=== PATIENT | female | born 1975 ===

== ENCOUNTER 2024-10-20 10:00 | Inpatient (IN) | payer OTHER ==
[~2024-10-20] VITALS: Ht 30.5 cm; Wt 63.5 kg
[2024-10-20] MEDS ORDERED: MIRALAX17 GM PO (10:50)
[2024-10-20 11:07] LABS: BASO % 0.3 % (0.1-1.2); EOS # 0.02 (0.04-0.54); EOS % 0.3 % (0.7-7.0); LYMPH # 1.99 (1.18-3.74); LYMPH % 33.5 % (19.3-53.1); MEAN PLATELET VOLUME 9.80 fl (9.4-12.4); MONO # 0.56 (0.24-0.82); MONO % 9.4 % (4.7-12.5); NEUT # 3.33 (1.56-6.13); NEUT % 56.2 % (34.0-71.1); RED CELL DISTRIBUTION WIDTH 11.9 % (11.6-14.4); URINE APPEARANCE Clear; URINE BILIRRUBIN Negative (NEGATIVE); URINE BLOOD Negative; URINE COLOR Yellow; URINE GLUCOSE Negative (NEGATIVE); URINE KETONE Negative (NEGATIVE); URINE LEUKOCYTE Trace; URINE NITRATE Positive; URINE PROTEIN Negative (NEGATIVE); URINE UROBILINOGEN 1.0 E.U./dl
[2024-10-20 11:10] LABS: URINE EPITHELIAL CELLS 8.6 uL (0.0-38.8); URINE RBC 17.3 uL (0.0-20.8); URINE WBC 8.7 uL (0.0-23.2)
[2024-10-20 11:11] LABS: URINE BACTERIA > 9821.5 uL (0.0-1933); URINE CAST 0.00 uL (0.0-1.40)
[2024-10-20 11:45] LABS: ALT/SGPT 25.0 U/L (12-78); AST/SGOT 18.0 U/L (15-37); BILIRUBIN TOTAL 0.47 mg/dL (0.3-1.2); BUN CREA RATIO 19.0 (7.0-25.0); CREATININE SERUM 0.72 mg/dL (0.55-1.02); GFR 86.09; GLOBULINA 3.4 G/DL (2.4-3.5); GLUCOSE FASTING 93.0 mg/dL (65-100); OSMOLALITY SERUM 283.0 MOSM/KG (275-295)
[2024-10-20 11:48] LABS: INR 0.99
[2024-10-20 13:30] LABS: RH POSITIVE
[2024-10-24] MEDS ORDERED: CEFTRIAXONE SODIUM 2,000 MG VIAL IV ONE (14:45)
[2024-10-24] MEDS ORDERED: BUPIVACAINE HCL 30 ML VIAL IJ ONE (14:45)
[2024-10-24] MEDS ORDERED: LIDOCAINE HCL 1%/EPINEPHRINE 20ML VIAL IJ ONE (14:45)
[2024-10-24] MEDS ORDERED: METRONIDAZOLE/SODIUM CHLORIDE 500 MG/100 ML PIGGYBACK IV ONE (14:45)
[2024-10-24] MEDS ORDERED: SUGAMMADEX SODIUM 200 MG/2 ML VIAL IV ONE (15:15)
[2024-10-24] MEDS ORDERED: ONDANSETRON HCL 2 MG/ML VIAL IV PRN (16:00)
[2024-10-24] MEDS ORDERED: OxyCODONE HCL 5 MG TABLET (ROXICODONE) PO PRN (16:00)
[2024-10-24] MEDS ORDERED: MORPHINE SULFATE 4 MG/ML CARTRIDGE IV PRN (16:00)
[2024-10-24] MEDS ORDERED: DEXTROSE 50 % IN WATER 0.5 G/ML VIAL IV PRN (16:00)
[2024-10-24] MEDS ORDERED: RINGERS SOLUTION,LACTATED 1,000 ML IV SCH (16:00)
[2024-10-24] MEDS ORDERED: MORPHINE SULFATE 4 MG/ML VIAL IV ONE ×2 (16:05→17:05)
[2024-10-24] MEDS ORDERED: HYOSCYAMINE SULFATE 0.125 MG TAB.SUBL SL SCH (17:00)
[2024-10-24] MEDS ORDERED: GABAPENTIN 300 MG CAPSULE PO SCH (17:00)
[2024-10-24] MEDS ORDERED: levoFLOXacin IN DEXTROSE 5 % 150 ML IV SCH (18:04)
[2024-10-24 18:33] LABS: BASO % 0.2 % (0.1-1.2); EOS # 0.00 (0.04-0.54); EOS % 0.0 % (0.7-7.0); LYMPH # 1.05 (1.18-3.74); LYMPH % 8.3 % (19.3-53.1); MEAN PLATELET VOLUME 9.70 fl (9.4-12.4); MONO # 0.62 (0.24-0.82); MONO % 4.9 % (4.7-12.5); NEUT # 10.92 (1.56-6.13); NEUT % 86.3 % (34.0-71.1); RED CELL DISTRIBUTION WIDTH 11.7 % (11.6-14.4)
[2024-10-24 19:07] LABS: BUN CREA RATIO 10.0 (7.0-25.0); CREATININE SERUM 0.71 mg/dL (0.55-1.02); GFR 87.49; GLUCOSE FASTING 118.0 mg/dL (65-100); OSMOLALITY SERUM 282.0 MOSM/KG (275-295)
[2024-10-24] MEDS ORDERED: FAMOTIDINE/PF 20 MG/2 ML VIAL ONE (19:17)
[2024-10-24] MEDS ORDERED: ACETAMINOPHEN 500 MG GEL..CAP PO SCH (20:00)
[2024-10-24] MEDS ORDERED: FAMOTIDINE/PF 20 MG/2 ML VIAL IV PUSH SCH (21:00)
[2024-10-24 21:20] VITALS: BP 119/72; O2SAT 97
[2024-10-25 01:20] VITALS: BP 108/62; O2SAT 97
[2024-10-25 07:10] LABS: BASO % 0.2 % (0.1-1.2); EOS # 0.00 (0.04-0.54); EOS % 0.0 % (0.7-7.0); LYMPH # 1.47 (1.18-3.74); LYMPH % 14.3 % (19.3-53.1); MEAN PLATELET VOLUME 9.90 fl (9.4-12.4); MONO # 0.91 (0.24-0.82); MONO % 8.9 % (4.7-12.5); NEUT # 7.86 (1.56-6.13); NEUT % 76.4 % (34.0-71.1); RED CELL DISTRIBUTION WIDTH 11.6 % (11.6-14.4)
[2024-10-25 07:25] LABS: BUN CREA RATIO 9.0 (7.0-25.0); CREATININE SERUM 0.7 mg/dL (0.55-1.02); GFR 88.94; GLUCOSE FASTING 105.0 mg/dL (65-100); OSMOLALITY SERUM 276.0 MOSM/KG (275-295)
[2024-10-25 08:00] VITALS: BP 117/72; O2SAT 99
[2024-10-25] MEDS ORDERED: CIPROFLOXACIN IN 5 % DEXTROSE 200 ML IV SCH (09:00)
[2024-10-25] MEDS ORDERED: MAGNESIUM SULFATE IN WATER 50 ML IV NR (12:00)
[2024-10-25 15:43] VITALS: BP 112/75; O2SAT 95
[2024-10-25] MEDS ORDERED: ENOXAPARIN SODIUM 40 MG/0.4 ML SYRINGE SUBCUTANEO SCH (17:00)
[2024-10-26 01:29] VITALS: BP 113/76; O2SAT 100
[2024-10-26 08:09] VITALS: BP 137/73; O2SAT 97
[2024-10-26] MEDS ORDERED: ENOXAPARIN SODIUM 40 MG/0.4 ML SYRINGE SUBCUTANEO SCH (09:00)
[2024-10-26 14:20] LABS: BASO % 0.1 % (0.1-1.2); EOS # 0.05 (0.04-0.54); EOS % 0.6 % (0.7-7.0); LYMPH # 1.59 (1.18-3.74); LYMPH % 20.4 % (19.3-53.1); MEAN PLATELET VOLUME 9.80 fl (9.4-12.4); MONO # 0.78 (0.24-0.82); MONO % 10.0 % (4.7-12.5); NEUT # 5.35 (1.56-6.13); NEUT % 68.8 % (34.0-71.1); RED CELL DISTRIBUTION WIDTH 11.9 % (11.6-14.4)
[2024-10-26 14:58] LABS: BUN CREA RATIO 8.0 (7.0-25.0); CREATININE SERUM 0.75 mg/dL (0.55-1.02); GFR 82.13; GLUCOSE FASTING 115.0 mg/dL (65-100); OSMOLALITY SERUM 287.0 MOSM/KG (275-295)
[2024-10-26 16:54] VITALS: BP 105/70; O2SAT 100
[2024-10-26] MEDS ORDERED: POTASSIUM PHOS,M-BASIC-D-BASIC 3 MM/ML VIAL IV NR (18:00)
[2024-10-26] MEDS ORDERED: POLYETHYLENE GLYCOL 3350 17 GM BLIST.PACK PO SCH (21:00)
[2024-10-27 04:59] VITALS: BP 131/86; O2SAT 95
[2024-10-27 08:28] VITALS: BP 128/79; O2SAT 95
[2024-10-27] MEDS ORDERED: INTESTINEX680 M1 PO (09:17)
[2024-10-27] MEDS ORDERED: HYOSCYAMINE0.125 M1 SL (09:17)
== END 2024-10-27 12:26 | disposition home or self-care (01) | DRG 330 ==
LOC: O/R 10-24 09:00 → SURG 10-24 09:00 → SURH 10-24 10:00 → SURG 10-24 17:33
PROVIDERS: Internal Medicine Geriatric Medicine; ADMIT Surgery; ATTEND Surgery
PROC: 07BC4ZZ Excision of Pelvis Lymphatic, Percutaneous Endoscopic Approach (ICD-10-PCS; 2024-10-24)
PROC: 0DTF4ZZ Resection of Right Large Intestine, Percutaneous Endoscopic Approach (ICD-10-PCS; principal; 2024-10-24 10:15)
DX: D12.2 Benign neoplasm of ascending colon (principal); N39.0 Urinary tract infection, site not specified; D37.4 Neoplasm of uncertain behavior of colon